=== PATIENT | male | born 1985 | race African-American/Black ===

== ENCOUNTER → 2021-02-14 | Emergency (ER) | payer MEDICAID ==
[~2021-02-14] VITALS: Ht 175.3 cm; Wt 74.1 kg
[~2021-02-14] MED LIST: APIX5TAB PO; GABA-583 PO; METO25TA3 PO
[2021-02-14 20:20] VITALS: BP 124/66
== END | disposition home or self-care (01) ==
LOC: EMS 19:36
DX: S46.912A Strain of unspecified muscle, fascia and tendon at shoulder and upper arm level, left arm, initial encounter (principal); I10 Essential (primary) hypertension; F17.210 Nicotine dependence, cigarettes, uncomplicated; X58.XXXA Exposure to other specified factors, initial encounter; Y93.89 Activity, other specified; Y92.89 Other specified places as the place of occurrence of the external cause; Y99.8 Other external cause status
CPT/HCPCS: 99282; Z7502